=== PATIENT | male | born 1940 | race Two or more races ===

== ENCOUNTER 2019-07-31 14:24 | Outpatient (CLI) | payer MEDICARE, MEDICAID ==
[~2019-07-31] VITALS: Ht 152.4 cm; Wt 61.7 kg
[~2019-07-31 14:24] MED LIST: ASPIRIN81 M3 PO; CRESTOR10 M1 ORAL; METHADONE10 MG/1 M1 PO; NEXIUM40 MG ORAL; PLAVIX75 MG ORAL
[2019-07-31 14:50] VITALS: BP 125/65
--- NOTE | 2019-07-31 21:30 | Consultation ---
DATE OF CONSULTATION: 07/31/2019 CONSULTING PHYSICIAN: Jorje Toscano M.D. REFERRING PHYSICIAN: Dr. Monaco. CHIEF COMPLAINT: Dilated common bile duct seen on a CT scan. HISTORY OF PRESENT ILLNESS: This is a very pleasant 78-year-old male, who has complaint of nausea on and off without any significant vomiting. No abdominal pain. No significant weight loss. He had a CT of the abdomen and pelvis done, which showed dilated common bile duct to about 12 mm. The patient was recommended to have an EUS. PAST MEDICAL HISTORY: 1. 2. Coronary artery disease. 3. GERD. 4. History of chronic opium usage. PAST SURGICAL HISTORY: Cardiac stent placement. MEDICATIONS: Aspirin, methadone, Dexilant, and thyroid medication. FAMILY HISTORY: Mother had breast cancer. SOCIAL HISTORY: The patient denies any tobacco, alcohol, or IV drug abuse. ALLERGIES: To morphine. REVIEW OF SYSTEMS: A 10-point review of systems was performed and complained of nausea. PHYSICAL EXAMINATION: VITAL SIGNS: The patient is afebrile, blood pressure is 125/65, pulse 63, and respirations 20. HEENT: Normocephalic and atraumatic. Sclerae anicteric. NECK: Supple. No evidence of obvious lymphadenopathy. CARDIOVASCULAR: Regular rhythm. Plus S1, S2. LUNGS: Clear to auscultation bilaterally. ABDOMEN: Positive bowel sounds. Soft and nontender. No rebound. No guarding. No peritoneal sign. EXTREMITIES: No cyanosis. No clubbing. No edema. ASSESSMENT AND PLAN: This is a 78-year-old male with dilated common bile duct with chronic nausea. We recommend starting an EUS. We are also going to do CA 19-9 on the procedure day. The patient is scheduled for Sunday for EUS. I want to thank Dr. Monaco for this kind referral. Jorje Toscano M.D. DR: JOSE JOB#: [id number] CC: Dr. Monaco
[2019-08-01] MEDS ORDERED: DEXILANT60 MG ORAL (10:02)
[2019-08-01] MEDS ORDERED: METHIMAZOLE10 MG PO (10:02)
[2019-08-01] MEDS ORDERED: ASPIRIN EC81 MG ORAL (10:02)
== END 2019-07-31 16:01 | disposition home or self-care (01) ==
LOC: PAN 14:24
DX: R11.0 Nausea (principal); K21.9 Gastro-esophageal reflux disease without esophagitis; Z79.82 Long term (current) use of aspirin; Z79.899 Other long term (current) drug therapy; I25.10 Atherosclerotic heart disease of native coronary artery without angina pectoris
CPT/HCPCS: G0463

== ENCOUNTER 2019-10-08 11:53 | Outpatient (CLI) | payer MEDICARE, MEDICAID ==
[~2019-10-08 11:53] MED LIST changes: +ASPIRIN EC81 MG ORAL; +DEXILANT60 MG ORAL; +METHIMAZOLE10 MG PO
--- NOTE | 2019-10-08 12:10 | General Progress Note ---
Assessment/Plan Assessment/Plan: 1. dilated CBD 12 mm 2. Coronary artery disease. 3. GERD. 4. History of chronic opium usage. plan EUS 10/20/2019 Subjective ROS Limited/Unobtainable: Yes Allergies: Coded Allergies: MORPHINE (Verified Allergy, Mild, 07/31/19) Objective General Appearance: alert EENT: normal ENT inspection Neck: supple Cardiovascular: normal rate Respiratory/Chest: decreased breath sounds Abdomen: normal bowel sounds, non tender, soft Extremities: non-tender Jorje Toscano MD October 08, 2019 12:10
== END 2019-10-08 14:48 | disposition home or self-care (01) ==
LOC: PAN 11:53
DX: K21.9 Gastro-esophageal reflux disease without esophagitis (principal); I25.10 Atherosclerotic heart disease of native coronary artery without angina pectoris; K83.8 Other specified diseases of biliary tract; Z88.6 Allergy status to analgesic agent
CPT/HCPCS: 99212